=== PATIENT | male | born 1940 | race Caucasian/White ===

== ENCOUNTER 2017-08-12 19:14 | Emergency (ER) | payer MEDICARE, BC ==
[~2017-08-12] VITALS: Ht 177.8 cm; Wt 61.2 kg
[~2017-08-12 19:14] MED LIST: CARI350; CENTRUM CARDIO PO; CETI10; ESZO2 PO; FINA5; FISH1000 PO; FLUD.1 PO; GEMF600 PO; HYDACE10B PO; HYDACE5 PO; HYDACE7.5; IRON150C PO; MIRT30 PO; OXYC10ER; POTCIT10 PO; POTCIT5; PRAV20; RAMI1.25; SIMV40 PO; SODBIC650; SPIR25 PO; STOMUL; ZEMPLAR
[2017-08-12 19:38] LABS: Hematocrit 41.9 % (37.0-53.0); Hemoglobin 14.1 g/dL (13.5-17.5); Mean Corpuscular HGB 31.5 pg (26.0-34.0); Mean Corpuscular HGB Conc 33.7 g/dL (31.5-36.5); Mean Corpuscular Volume 94 fL (80-100); Mean Platelet Volume 10.4 fL (9.1-12.4); Platelet Count 344 K/mm3 (150-400); RDW Coefficient Variation 13.2 % (11.7-14.2); RDW Standard Deviation 45.4 fL (35.1-46.3); Red Blood Cell Count 4.47 M/mm3 (4.30-5.90); White Blood Cell Count 11.35 K/mm3 (4.00-11.30)
[2017-08-12 19:50] LABS: International Normalized Ratio 1.2; Prothrombin Time Results 12.5 Sec (9.7-11.5)
[2017-08-12 19:51] LABS: Albumin, Blood 3.6 g/dL (3.4-5.0); Albumin/Globulin Ratio 0.9 (0.8-1.8); Bilirubin, Total 0.1 mg/dL (0.1-1.0); Bun/Creatinine Ratio 43.3 (12.0-20.0); Calcium, Blood 8.9 mg/dL (8.5-10.1); Creatinine, Blood 1.64 mg/dL (0.60-1.20); Globulin, Blood 3.8 g/dL (2.2-4.0); Potassium, Blood 3.8 mmol/L (3.5-5.5); Total Protein, Blood 7.4 g/dL (6.4-8.2)
[2017-08-12 20:26] LABS: BAND PERCENT MAN 1 % (0-8); BASOPHILS PERCENT MAN 0 % (0-2); EOSINOPHILS ABSOLUTE MAN 0.56 K/mm3 (0.00-0.68); EOSINOPHILS PERCENT MAN 5 % (0-6); LYMPHOCYTES ABSOLUTE MAN 4.99 K/mm3 (0.84-5.20); LYMPHOCYTES PERCENT MAN 44 % (21-46); MONOCYTES ABSOLUTE MAN 0.34 K/mm3 (0.16-1.47); MONOCYTES PERCENT MAN 3 % (4-13); NEUTROPHILS ABSOLUTE MAN 5.44 K/mm3 (1.96-9.15); SEG NEUTROPHILS PERCENT MAN 47 % (41-73); TOTAL CELLS COUNTED 100
== END 2017-08-13 00:27 | disposition home or self-care (01) ==
LOC: ER 19:14 → EOR 19:15 → ER 19:15 → EOR 19:15 → ER 08-13 00:27
PROVIDERS: Emergency Medicine
DX: S01.01XA Laceration without foreign body of scalp, initial encounter (principal); E86.0 Dehydration; F10.129 Alcohol abuse with intoxication, unspecified; N18.9 Chronic kidney disease, unspecified; Y90.8 Blood alcohol level of 240 mg/100 ml or more; W18.30XA Fall on same level, unspecified, initial encounter; Z79.899 Other long term (current) drug therapy; Z79.891 Long term (current) use of opiate analgesic; I48.91 Unspecified atrial fibrillation; Z85.46 Personal history of malignant neoplasm of prostate
CPT/HCPCS: 12032; 36415; 70450; 72125; 80053; 85025; 85610; 96374; 99285; G0480; J2060

== ENCOUNTER 2020-09-11 19:56 | Observation (INO) | payer MEDICARE, OTHER ==
[~2020-09-11] VITALS: Ht 177.8 cm; Wt 76.5 kg
[2020-09-11 21:00] LABS: BASOPHILS ABSOLUTE AUTO 0.06 K/mm3 (0.00-0.23); BASOPHILS PERCENT AUTO 1 % (0-2); EOSINOPHILS ABSOLUTE AUTO 0.13 K/mm3 (0.00-0.68); EOSINOPHILS PERCENT AUTO 1 % (0-6); Hematocrit 46.1 % (37.0-53.0); Hemoglobin 14.9 g/dL (13.5-17.5); IMMATURE GRAN ABSOLUTE AUTO 0.03 K/mm3 (0.00-0.10); IMMATURE GRAN PERCENT AUTO 0 % (0-1); LYMPHOCYTES ABSOLUTE AUTO 2.78 K/mm3 (0.84-5.20); LYMPHOCYTES PERCENT AUTO 27 % (21-46); MONOCYTES ABSOLUTE AUTO 0.98 K/mm3 (0.16-1.47); MONOCYTES PERCENT AUTO 10 % (4-13); Mean Corpuscular HGB 28.7 pg (26.0-34.0); Mean Corpuscular HGB Conc 32.3 g/dL (31.5-36.5); Mean Corpuscular Volume 89 fL (80-100); Mean Platelet Volume 11.3 fL (9.1-12.4); NEUTROPHILS ABSOLUTE AUTO 6.33 K/mm3 (1.96-9.15); NEUTROPHILS PERCENT AUTO 61 % (41-73); Platelet Count 259 K/mm3 (150-400); RDW Coefficient Variation 17.1 % (11.7-14.2); RDW Standard Deviation 55.5 fL (35.1-46.3); Red Blood Cell Count 5.19 M/mm3 (4.30-5.90); White Blood Cell Count 10.31 K/mm3 (4.00-11.30)
[2020-09-11 21:15] LABS: International Normalized Ratio 1.51; Prothrombin Time Results 15.9 Sec (9.7-11.5)
[2020-09-11 21:18] LABS: Albumin, Blood 3.7 g/dL (3.4-5.0); Albumin/Globulin Ratio 0.9 (0.8-1.8); Bilirubin, Total 0.6 mg/dL (0.1-1.0); Bun/Creatinine Ratio 18.8 (12.0-20.0); Calcium, Blood 9.2 mg/dL (8.5-10.1); Creatinine, Blood 2.71 mg/dL (0.60-1.20); Globulin, Blood 4.1 g/dL (2.2-4.0); Total Protein, Blood 7.8 g/dL (6.4-8.2)
[2020-09-11 22:16] LABS: Source, Urine Clean Catch
[2020-09-11 22:18] LABS: Bilirubin, Urine Neg (Neg); Blood, Urine 4+ (Neg); Glucose Qualitative, Urine Neg (Neg); Ketones, Urine Neg (Neg); Leukocyte Esterase, Urine 2+ (Neg); Nitrite, Urine Neg (Neg); Protein, Urine 2+ (Neg); Urobilinogen, Urine NORM (Normal)
[2020-09-11 22:25] LABS: Appearance, Urine Clear (Clear); Color, Urine Yellow (P-Yellow)
[2020-09-11 22:26] LABS: Bacteria Many /hpf; Hyaline Casts 0-2 /lpf (0-2); Squamous Epithelial Cells Few /hpf (Few)
[2020-09-11] MEDS ORDERED: CEFD300 PO (22:46)
[2020-09-12] MEDS ORDERED: MIDO5 PO (01:20)
[2020-09-12] MEDS ORDERED: Simvastatin20 MG PO (01:20)
[2020-09-12] MEDS ORDERED: MIRT30 PO (01:21)
[2020-09-12] MEDS ORDERED: IPRATROPIUM BRO30 ML (01:23)
[2020-09-12] MEDS ORDERED: PANT40 PO (01:25)
[2020-09-12] MEDS ORDERED: METO25ER PO (01:26)
[2020-09-12] MEDS ORDERED: SODBIC650 PO (01:27)
[2020-09-12] MEDS ORDERED: IBUP200 PO (01:29)
[2020-09-12] MEDS ORDERED: PRADAXA75 MG PO (01:30)
[2020-09-12 04:16] LABS: Bun/Creatinine Ratio 18.8 (12.0-20.0); Calcium, Blood 8.7 mg/dL (8.5-10.1); Creatinine, Blood 2.6 mg/dL (0.60-1.20); Potassium, Blood 4.3 mmol/L (3.5-5.5)
--- NOTE | 2020-09-12 06:13 | NUR ---
SHIFT SUMMARY PT AOX3, SOME CONFUSION, HAD ONE EPISODE OF UP IN BED ACTIVATING BED ALARM DESPITE EDUCATION REGARDING USE OF CALL LIGHT. THIS RN ADVISES STANDBY ASSIST DUE TO LINES, CORDS, PT SLIGHTLY UNSTEADY ON FEET. BREATHING EVEN AND UNLABORED. PT DENIES ANY PAIN OR DISCOMFORT. HARD OF HEARING. ON ARRIVAL PT IN AFIB AT A RATE RANGING FROM 90'S-MID 100'S. CARDIZEM DRIP INFUSED T/O SHIFT AT 5 MG/HR, CURRENTLY AFIB IN 80'S. LR INFUSING PER ORDERS THROUGH L AC IV. CARDIZEM INFUSING THROUGH R HAND/FA IV.
--- NOTE | 2020-09-12 16:37 | NUR ---
CARE COORDINATION REFERRAL - ADMIT: 09/11/2020 DISCHARGE: DX: AFIB WITH RVR RESIDENCE: HOME - [place] [facility] [id number] CAREGIVER: LIONEL PERKINS, FAMILY MEMBER, DOLLY PRASAD, SPOUSE / PARTNER, JEREMÍAS BAEZA, CHILD DME: NONE CCM: NONE HOME HEALTH: NONE UPDATE 09/12/20 1628: PER CHART REVIEW THIS AM WITH DR. PATEL, PT. LIKELY TO DISCHARGE WITHIN 24-48 HOURS IF HIS CONDITION IS STABLE. VISIT WITH PT. IN ROOM. HE SEEMS TO HAVE A STRONG SUPPORT SYSTEM AT HOME HE LIVES WITH HIS AND SON. DENIED ANY BARRIERS TO MOBILITY WITIN THE HOME OR CONCERNS RELATING TO SAFETY. CONFIRMED PHARMACY [facility]. PT. STATED THAT IF HE IS DISCHARGED ON MEDICATIONS HIS WILL ASSIST HIM IN PICKING THOSE UP. FAMILY PROVIDE TRANSPORTATION AT TIME OF DISCHARGE, LIKELY DOLLY [phone]. I ADVISED PT. THAT I WILL FOLLOW-UP WITH HIM FURTHER IN THE MORNING. PATIENT SCHEDULED FOR 09/19/20 11:40 AM FOR FOLLOW-UP. WILL RESCHEDULE IF PATIENT'S HOSPITAL STAY EXTENDS. WILL PROVIDE PT. WITH DISCHARGE LETTER AND APPOINTMENT INFORMATION TOMORROW MORNING.
--- NOTE | 2020-09-12 17:15 | NUR ---
SHIFT SUMMARY PT ALERT AND ORIENTED. VS STABLE. HR HAS BEEN AFIB IN THE 80'S. DILTIAZEM GTT TURNED OFF AT APROXIMATELY 0745. BP STABLE. PT ABLE TO AMBULATE TO BATHROOM NEEDED TO VOID WITH SBA. WILL CONTINUE TO MONITOR AND REPORT TO ONCOMING RN. CALL LIGHT IN REACH.
--- NOTE | 2020-09-13 06:51 | NUR ---
SHIFT SUMMARY PT AOX3 T/O SHIFT. UP W/O CALLING A FEW TIMES TO USE URINAL AT BEDSIDE. PT OTHERWISE FOLLOWS DIRECTIONS. SPOKE WITH LAST NIGHT ON PHONE. SATS 97-99% ON RA. NO C/O PAIN OR DISCOMFORT. MEDICATED FOR AFIB 130'S-160'S WITH ACTIVITY WITH 10 MG IV CARDIZEM PUSH AND PO METOPROLOL XL 25 MG OT. HR 80'S-90'S AFIB. SBP 100'S-130'S T/O SHIFT. SALINE LOCKED.
[2020-09-13] MEDS ORDERED: LEVFLO500 (14:26)
[2020-09-13] MEDS ORDERED: LEVFLO500 PO (14:43)
--- NOTE | 2020-09-13 15:50 | NUR ---
PT DISHCARGE PT PROVIDED WITH DISCHARGE INSTRUCTIONS PER PHYSICIAN. PT PROVIDED WITH NEW MEDICATIONS INSTRUCTION. VS STABLE. NEW MEDICATION CALLED TO PT'S PREFERRED PHARMACY. IV REMOVED. TELE REMOVED. PT BROUGHT TO VEHICLE BY SON.
== END 2020-09-13 15:44 | disposition home or self-care (01) ==
LOC: ER 19:56 → PCU 19:57
PROVIDERS: Physician Assistant; ADMIT Internal Medicine
DX: I48.91 Unspecified atrial fibrillation (principal); N39.0 Urinary tract infection, site not specified; B96.4 Proteus (mirabilis) (morganii) as the cause of diseases classified elsewhere; E87.2 Acidosis; N18.4 Chronic kidney disease, stage 4 (severe); N17.9 Acute kidney failure, unspecified; E87.8 Other disorders of electrolyte and fluid balance, not elsewhere classified; M54.5 Low back pain; N18.30 Chronic kidney disease, stage 3 unspecified; D63.1 Anemia in chronic kidney disease; G60.9 Hereditary and idiopathic neuropathy, unspecified; R76.9 Abnormal immunological finding in serum, unspecified; R94.5 Abnormal results of liver function studies; Z85.46 Personal history of malignant neoplasm of prostate; Z96.642 Presence of left artificial hip joint; Z96.651 Presence of right artificial knee joint
CPT/HCPCS: 36415; 36600; 71045; 80048; 80053; 81001; 82248; 82803; 83605; 84100; 85025; 85610; 85730; 86850; 86900; 86901; 87040; 87077; 87086; 87186; 93005; 93010; 96361; 96365; 96375; 96376; 97161; 97165; 97535; 99284-25; A9270; G0378; J0696; J7030; J7050; J7120

== ENCOUNTER → 2021-09-24 | Outpatient (CLI) | payer MEDICARE, OTHER ==
[~2021-09-24] MED LIST changes: +CEFD300 PO; +IBUP200 PO; +IPRATROPIUM BRO30 ML; +LEVFLO500; +LEVFLO500 PO; +METO25ER PO; +MIDO5 PO; +PANT40 PO; +PRADAXA75 MG PO; +SODBIC650 PO; +Simvastatin20 MG PO
[2021-09-24 17:21] LABS: Protein, Urine Quantitative 64.9 mg/dL (0.0-11.9)
[2021-09-24 17:25] LABS: Microalbumin, Urine Quant. 63.6 mg/L (0.000-20.000)
== END | disposition home or self-care (01) ==
LOC: LAB SHORT 05:00 → LAB 05:00
PROVIDERS: Internal Medicine Nephrology
DX: E11.21 Type 2 diabetes mellitus with diabetic nephropathy (principal); E11.22 Type 2 diabetes mellitus with diabetic chronic kidney disease; N18.30 Chronic kidney disease, stage 3 unspecified; D63.1 Anemia in chronic kidney disease; G60.9 Hereditary and idiopathic neuropathy, unspecified; R76.9 Abnormal immunological finding in serum, unspecified; R94.5 Abnormal results of liver function studies
CPT/HCPCS: 81050; 82043; 84156; 84300